=== PATIENT | male | born 1965 | race American Indian/Alaskan Native ===

== ENCOUNTER 2021-04-02 13:40 | Emergency (ER) | payer MEDICAID ==
[2021-04-02 15:32] VITALS: BP 157/89
== END 2021-04-02 18:04 | disposition left against medical advice (07) ==
LOC: ED 13:40
DX: M79.671 Pain in right foot (principal); E11.9 Type 2 diabetes mellitus without complications; Z53.21 Procedure and treatment not carried out due to patient leaving prior to being seen by health care provider

== ENCOUNTER 2021-05-14 08:40 | Outpatient (CLI) | payer MEDICAID ==
--- NOTE | 2021-05-14 12:11 | Magnetic Resonance Report ---
MR LOWER EXTREMITY NONJOINT RIGHT WITHOUT CONTRAST HISTORY: Infection and right toe, throbbing pain, evaluate for osteomyelitis. TECHNIQUE: Multisequence, multiplanar MRI without contrast was performed through the distal right arnold t. COMPARISON: None at this facility. FINDINGS: There is moderate diffuse subcutaneous edema. Mild edema is also noted throughout the intrinsic muscl es of the distal foot. There is skin ulceration of the distal great toe which appears to extend to bone. There is abnormal b one marrow edema and decreased T1 signal throughout distal phalanx of the great toe consistent with o steomyelitis. Bone marrow signal throughout the remaining visualized osseous structures distal foot i s unremarkable. No evidence for soft tissue abscess. IMPRESSION: Osteomyelitis of the distal phalanx of the great toe. Signer Name: Zi Chery Jr, MD Signed: 05/14/2021 12:07 PM Workstation Name: [id number]
== END 2021-05-14 08:41 | disposition home or self-care (01) ==
LOC: MRI 08:40
PROVIDERS: ATTEND Podiatrist Foot & Ankle Surgery
DX: M86.8X6 Other osteomyelitis, lower leg (principal); L08.9 Local infection of the skin and subcutaneous tissue, unspecified